=== PATIENT | female | born 1980 | race Caucasian/White ===

== ENCOUNTER 2018-09-15 21:35 | Emergency (ER) | payer OTHER ==
[~2018-09-15] VITALS: Ht 152.4 cm; Wt 76.2 kg
[2018-09-15] MEDS ORDERED: NASONEX17 GM NASAL (21:53)
[2018-09-15] MEDS ORDERED: PROMETHAZINE-C473 ML PO (21:53)
[2018-09-15 22:01] VITALS: BP 132/76
== END 2018-09-15 22:02 | disposition home or self-care (01) ==
LOC: M.ERS 21:35
DX: J06.9 Acute upper respiratory infection, unspecified (principal); H92.02 Otalgia, left ear; Z90.49 Acquired absence of other specified parts of digestive tract

== ENCOUNTER 2019-07-09 20:04 | Emergency (ER) | payer OTHER ==
[~2019-07-09] VITALS: Ht 157.5 cm; Wt 77.1 kg
[~2019-07-09 20:04] MED LIST: AFRIN15 ML NS; ANTIVERT25 MG PO; AUGMENTIN 875-1 EACH PO; MEDROLDOSEPACK PO; NASONEX17 GM NASAL; PROMETHAZINE-C473 ML PO
[2019-07-09] MEDS ORDERED: CLARITIN10 MG PO (20:17)
[2019-07-09] MEDS ORDERED: ROBAXIN 750 MG750 MG PO (21:05)
[2019-07-09] MEDS ORDERED: TRAMADOL 50 MG50 MG PO (21:05)
[2019-07-09] MEDS ORDERED: MOBIC7.5 MG PO (21:05)
[2019-07-09 21:18] VITALS: BP 130/79
== END 2019-07-09 21:18 | disposition home or self-care (01) ==
LOC: M.ERS 20:04
DX: M25.511 Pain in right shoulder (principal); M25.512 Pain in left shoulder; M54.6 Pain in thoracic spine; Z90.49 Acquired absence of other specified parts of digestive tract

== ENCOUNTER 2019-10-19 15:50 | Emergency (ER) | payer OTHER ==
[~2019-10-19] VITALS: Ht 157.5 cm; Wt 77.1 kg
[~2019-10-19 15:50] MED LIST changes: +CLARITIN10 MG PO; +MOBIC7.5 MG PO; +ROBAXIN 750 MG750 MG PO; +TRAMADOL 50 MG50 MG PO
[2019-10-19 16:38] LABS: INFLUENZA A ANTIGEN Negative (Negative)
[2019-10-19] MEDS ORDERED: AUGMENTIN 875-1 EACH PO (16:55)
[2019-10-19] MEDS ORDERED: CIPRODEX OTIC7.5 ML OTIC (16:55)
[2019-10-19] MEDS ORDERED: TYLENOL WITH CO1 TA1 PO (16:55)
[2019-10-19] MEDS ORDERED: NASONEX17 GM NASAL (17:13)
[2019-10-19] MEDS ORDERED: PREDNISONE 10 M10 MG PO (17:13)
[2019-10-19] MEDS ORDERED: PROMETH-CODEIN 65 ML PO (17:13)
[2019-10-19] MEDS ORDERED: TAMIFLU75 MG PO (17:13)
[2019-10-19 17:23] VITALS: BP 132/78
== END 2019-10-19 17:25 | disposition home or self-care (01) ==
LOC: M.ERS 15:50
PROVIDERS: Nurse Practitioner Family
DX: J10.1 Influenza due to other identified influenza virus with other respiratory manifestations (principal); Z90.49 Acquired absence of other specified parts of digestive tract

== ENCOUNTER 2019-10-23 18:59 | Emergency (ER) | payer OTHER ==
[~2019-10-23] VITALS: Ht 157.5 cm; Wt 77.1 kg
[~2019-10-23 18:59] MED LIST changes: +CIPRODEX OTIC7.5 ML OTIC; +PREDNISONE 10 M10 MG PO; +PROMETH-CODEIN 65 ML PO; +TAMIFLU75 MG PO; +TYLENOL WITH CO1 TA1 PO
[2019-10-23 20:07] LABS: HEMATOCRIT 42.6 % (37.0-47.0); HEMOGLOBIN 14.7 gm/dL (12.0-15.0); MCH 28.6 pg (26.0-34.0); MCHC 34.4 g/dL (28.0-37.0); NUCLEATED RBCS 0 /100WBC; PLATELET COUNT* 322 thou/uL (150-400); RBC 5.13 mil/uL (4.20-5.00)
[2019-10-23 20:18] LABS: CALCIUM 8.2 mg/dL (8.5-10.1); CREATININE 0.7 mg/dL (0.6-1.3); POTASSIUM 3.7 mmol/L (3.5-5.1)
[2019-10-23 20:28] LABS: ALBUMIN 3.7 g/dL (3.4-5.0); MAGNESIUM 2.2 mg/dL (1.8-2.4); TOTAL BILIRUBIN 0.2 mg/dL (<0.1-1.0)
[2019-10-23 20:36] LABS: ABSOLUTE LYMPHOCYTES 1.7 thou/uL (0.8-5.3); ABSOLUTE MONOCYTES 0.1 thou/uL (0.0-1.2); ABSOLUTE NEUTROPHILS 11.2 thou/uL (1.6-8.1)
[2019-10-23 20:37] LABS: PLATELET ESTIMATE ADEQUATE
[2019-10-23] MEDS ORDERED: NORCO 5-325 TA1 EAC1 PO (21:51)
[2019-10-23 22:16] VITALS: BP 138/83
--- NOTE | 2019-10-24 11:19 | EKG ---
[place] [address] ELECTROCARDIOGRAM REPORT Name: NORBERTO MARTINI [id number] Admission: 10/23/19 Attend Phys: Discharge: 10/23/19 Date of : 82 Report #: [id number] THIS REPORT FOR: //name// [facility] ED Test Date: 2019-10-23 Test Time: 19:27:59 Pat Name: NORBERTO MARTINI Department: Room: Gender: F Guardian Ad Litem: [place] : 1980 Requested By: Mj Stokes Order Number: [id number] MD: Juarez Locke Measurements Intervals [place] Rate: 69 P: 33 ID: 140 QRS: -8 QRSD: 98 T: 3 QT: 397 QTc: 426 Interpretive Statements Sinus rhythm Left ventricular hypertrophy Borderline ST elevation, lateral leads No previous ECG available for comparison Electronically Signed On 10-24-2019 11:18:33 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
== END 2019-10-23 22:17 | disposition home or self-care (01) ==
LOC: M.ERS 18:59
PROVIDERS: Emergency Medicine Emergency Medical Services
DX: R09.1 Pleurisy (principal); M94.0 Chondrocostal junction syndrome [Tietze]; J02.9 Acute pharyngitis, unspecified; R00.2 Palpitations; R11.0 Nausea; Z90.89 Acquired absence of other organs

== ENCOUNTER 2019-11-24 23:39 | Emergency (ER) | payer OTHER ==
[~2019-11-24] VITALS: Ht 157.5 cm; Wt 77.1 kg
[~2019-11-24 23:39] MED LIST changes: +NORCO 5-325 TA1 EAC1 PO
[2019-11-24] MEDS ORDERED: ZYRTEC10 M5 PO (23:58)
[2019-11-25] MEDS ORDERED: PREDNISONE50 MG PO (00:27)
[2019-11-25] MEDS ORDERED: FLONASE 0.05%50 MCG NARES (00:27)
[2019-11-25 00:50] VITALS: BP 115/71
== END 2019-11-25 00:51 | disposition home or self-care (01) ==
LOC: M.ERS 23:39
DX: H92.01 Otalgia, right ear (principal); Z90.49 Acquired absence of other specified parts of digestive tract

== ENCOUNTER 2020-07-22 16:25 | Emergency (ER) | payer OTHER ==
[~2020-07-22] VITALS: Ht 152.4 cm; Wt 70.3 kg
[~2020-07-22 16:25] MED LIST changes: +FLONASE 0.05%50 MCG NARES; +PREDNISONE50 MG PO; +ZYRTEC10 M5 PO
[2020-07-22] MEDS ORDERED: SUDAFED 12 HR120 MG PO (16:32)
[2020-07-22] MEDS ORDERED: MECLIZINE HCL25 M1 PO (16:56)
[2020-07-22] MEDS ORDERED: AUGMENTIN 875-1 EACH PO (16:56)
[2020-07-22] MEDS ORDERED: NORCO 5-325 TA1 EAC2 PO (16:56)
== END 2020-07-22 17:11 | disposition home or self-care (01) ==
LOC: M.ERS 16:25
DX: H83.02 Labyrinthitis, left ear (principal); Z90.49 Acquired absence of other specified parts of digestive tract

== ENCOUNTER 2020-11-02 21:52 | Emergency (ER) | payer OTHER ==
[~2020-11-02] VITALS: Ht 152.4 cm; Wt 70.3 kg
[~2020-11-02 21:52] MED LIST changes: +MECLIZINE HCL25 M1 PO; +NORCO 5-325 TA1 EAC2 PO; +SUDAFED 12 HR120 MG PO
[2020-11-02] MEDS ORDERED: FLEXERIL PO (22:49)
[2020-11-02] MEDS ORDERED: MOBIC7.5 MG PO (22:49)
[2020-11-02 22:57] VITALS: BP 132/85
== END 2020-11-02 22:58 | disposition home or self-care (01) ==
LOC: M.ERS 21:52
DX: M54.6 Pain in thoracic spine (principal); Z79.899 Other long term (current) drug therapy

== ENCOUNTER 2021-01-23 19:23 | Emergency (ER) | payer OTHER ==
[~2021-01-23] VITALS: Ht 157.5 cm; Wt 70.8 kg
[~2021-01-23 19:23] MED LIST changes: +FLEXERIL PO
[2021-01-23] MEDS ORDERED: FLEXERIL PO (21:39)
[2021-01-23] MEDS ORDERED: IBUPROFEN 800800 M1 PO (21:39)
[2021-01-23] MEDS ORDERED: BUTALB-APAP-CA1 EACH PO (21:39)
[2021-01-23 21:50] VITALS: BP 141/84
== END 2021-01-23 21:51 | disposition home or self-care (01) ==
LOC: M.ERS 19:23
DX: S09.8XXA Other specified injuries of head, initial encounter (principal); Z90.49 Acquired absence of other specified parts of digestive tract; W22.8XXA Striking against or struck by other objects, initial encounter; Y93.89 Activity, other specified; Y92.89 Other specified places as the place of occurrence of the external cause; Y99.8 Other external cause status

== ENCOUNTER → 2021-03-21 | Outpatient (CLI) | payer OTHER ==
[~2021-03-21] MED LIST changes: +BUTALB-APAP-CA1 EACH PO; +IBUPROFEN 800800 M1 PO
== END ==
LOC: M.RAD 03-17 08:36 → M.ULTRA 10:00 → M.RAD 03-22 10:40
PROVIDERS: ATTEND Obstetrics & Gynecology
DX: N60.02 Solitary cyst of left breast (principal); N63.21 Unspecified lump in the left breast, upper outer quadrant

== ENCOUNTER → 2021-03-31 | Outpatient (CLI) | payer OTHER ==
[~2021-03-31] MED LIST changes: +ACETAMINOPHEN-1 EAC2 PO; +AUGMENTIN 500-1 EACH PO; +DICLOXACILLIN250 M2 PO
--- NOTE | 2021-04-04 11:09 | PATH ---
[address] [address] PATHOLOGY RPT PROCEDURE Name: RICHA MARTINI Room: [facility] Zamora#: [id number] Admission: 03/31/21 Date of : 82 Discharge: Report #: [id number] Path Case #: [id number] [facility] Accession Number: [id number] . 01 Material submitted: . breast - BREAST MASS-LEFT-2:00 1CFN. Modifiers: left . 01 Clinical history: . LEFT BREAST MASS 2.18 X 2.07 X 1.69 . 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 See comment. (SHANE:osbaldo; 04/03/2021) S 04/03/2021 1033 Local . 02 Comment: Properly controlled Kiny[place] and PAS fungus stains are negative for mycobacterial and fungal organisms. No birefringent foreign material is seen when sections are reviewed under cross polarized microscopy. Reviewed with Dr. Jericho Roach on 04/03/2021, who agrees with the diagnosis. (SHANE:osbaldo; 04/03/2021) . 02 Electronically signed: . Jordan Altamirano MD, Pathologist NPI- [id number] . 01 Gross description: . The specimen is received in formalin, labeled "Richa Martini, left breast biopsy" additionally labeled left breast mass 2:00 1 cm from nipple on the requisition received as multiple soft hauser-yellow tissue cores measuring up to 1.2 cm x 0.2 cm. The specimen is entirely submitted A1-A2. The specimen is removed from the patient at 0920 hours and placed in formalin at 0922 hours on Saturday, March 31, 2021. The specimen is removed from formalin at 11:30pm. The specimen is in formalin for greater than 6 hours and less than 72 hours. ([facility]; 03/31/2021) ASAD/ASAD 03/31/2021 1740 Local . 02 Pathologist provided ICD-10: N61.0 . 02 CPT . 839868, 691126, 680681 [place] [address] PATHOLOGY RPT PROCEDURE Name: RICHA MARTINI Room: [facility]#: [id number] Admission: 03/31/21 Date of : 82 Discharge: Report #: [id number] Path Case #: [id number] Specimen Comment: A courtesy copy of this report has been sent to [phone] Specimen Comment: [phone], Specimen Comment: Report sent to ,DR BETANCOURT / DR SHELLEY Performed at: [address], [place], [place] [id number] MD Rishabh Melton MD Phone: [phone] Performed at: [facility] [address], [place], [place] [id number] MD Jordan Altamirano MD Phone: [phone]
== END ==
LOC: M.ULTRA 08:20
PROVIDERS: ATTEND Obstetrics & Gynecology
DX: N61.0 Mastitis without abscess (principal); R92.1 Mammographic calcification found on diagnostic imaging of breast; Z98.890 Other specified postprocedural states; Z79.899 Other long term (current) drug therapy

== ENCOUNTER 2021-04-11 23:15 | Emergency (ER) | payer OTHER ==
[~2021-04-11] VITALS: Ht 154.9 cm; Wt 70.3 kg
[~2021-04-11 23:15] MED LIST changes: -ACETAMINOPHEN-1 EAC2 PO; -AUGMENTIN 500-1 EACH PO; -DICLOXACILLIN250 M2 PO
[2021-04-11] MEDS ORDERED: DICLOXACILLIN250 M2 PO (23:34)
[2021-04-12] MEDS ORDERED: ACETAMINOPHEN-1 EAC2 PO (00:27)
[2021-04-12] MEDS ORDERED: AUGMENTIN 500-1 EACH PO (00:27)
[2021-04-12 00:38] VITALS: BP 147/76
== END 2021-04-12 00:38 | disposition home or self-care (01) ==
LOC: M.ERS 23:15
DX: L53.9 Erythematous condition, unspecified (principal); N61.0 Mastitis without abscess

== ENCOUNTER → 2021-04-14 | Outpatient (CLI) | payer OTHER ==
[~2021-04-14] MED LIST changes: +ACETAMINOPHEN-1 EAC2 PO; +AUGMENTIN 500-1 EACH PO; +DICLOXACILLIN250 M2 PO
== END ==
LOC: M.ULTRA 07:32
PROVIDERS: ATTEND Obstetrics & Gynecology
DX: N61.1 Abscess of the breast and nipple (principal)

== ENCOUNTER 2021-04-17 21:42 | Emergency (ER) | payer OTHER ==
[~2021-04-17] VITALS: Ht 154.9 cm; Wt 70.8 kg
[2021-04-17 21:46] VITALS: BP 145/65
[2021-04-17] MEDS ORDERED: ACETAMINOPHEN-1 EAC2 PO (22:39)
== END 2021-04-17 22:51 | disposition home or self-care (01) ==
LOC: M.ERS 21:42
DX: N64.4 Mastodynia (principal); Z76.0 Encounter for issue of repeat prescription; Z90.49 Acquired absence of other specified parts of digestive tract

== ENCOUNTER → 2021-05-26 | Outpatient (CLI) | payer OTHER ==
[2021-05-26 16:51] LABS: URINE BILIRUBIN NEGATIVE (Negative); URINE BLOOD 1+ (Negative); URINE COLOR YELLOW; URINE GLUCOSE-RANDOM NEGATIVE (Negative); URINE KETONES NEGATIVE (Negative); URINE LEUKOCYTES-REFLEX NEGATIVE (Negative); URINE NITRITE-REFLEX NEGATIVE (Negative); URINE PROTEIN NEGATIVE (Negative); URINE SPECIFIC GRAVITY <= 1.005 (1.005-1.030); URINE UROBILINOGEN 0.2 E.U./dl (0.2-1.0)
[2021-05-26 16:54] LABS: URINE CLARITY HAZY
[2021-05-26 17:08] LABS: BACTERIA-REFLEX None Seen /HPF (None Seen); CASTS None Seen /LPF (None Seen); SQUAMOUS 0-3 Few /LPF (0-3); URINE RBC 0-2 Rare /HPF (0-2); URINE WBC-REFLEX None Seen /HPF (0-5)
[2021-05-26 17:09] LABS: CRYSTALS None Seen /LPF (None Seen)
== END ==
LOC: M.LAB 16:35
PROVIDERS: ATTEND Internal Medicine
DX: N30.00 Acute cystitis without hematuria (principal)

== ENCOUNTER 2021-08-20 21:50 | Emergency (ER) | payer OTHER ==
[~2021-08-20] VITALS: Ht 157.5 cm; Wt 70.8 kg
[2021-08-20] MEDS ORDERED: NASONEX17 GM NASAL (23:09)
[2021-08-20 23:24] VITALS: BP 140/82
== END 2021-08-20 23:24 | disposition home or self-care (01) ==
LOC: M.ERS 21:50
DX: J06.9 Acute upper respiratory infection, unspecified (principal); Z20.822 Contact with and (suspected) exposure to COVID-19; Z90.49 Acquired absence of other specified parts of digestive tract

== ENCOUNTER 2021-08-21 22:34 | Emergency (ER) | payer OTHER ==
[~2021-08-21] VITALS: Ht 157.5 cm; Wt 70.8 kg
[2021-08-21 23:22] LABS: HEMATOCRIT 37.3 % (37.0-47.0); HEMOGLOBIN 12.6 gm/dL (12.0-15.0); MCH 28.8 pg (26.0-34.0); MCHC 33.8 g/dL (28.0-37.0); MCV 85.3 fL (80.0-100.0); MPV 7.8 fl. (7.2-11.1); RBC 4.37 mil/uL (4.20-5.00); RDW-CV 13.7 % (10.5-14.5); WBC 11.8 thou/uL (4.0-11.0)
[2021-08-21 23:31] LABS: CALCIUM 8.6 mg/dL (8.5-10.1); CREATININE 0.7 mg/dL (0.6-1.3); POTASSIUM 3.4 mmol/L (3.5-5.1)
[2021-08-21 23:35] LABS: ALBUMIN 3.2 g/dL (3.4-5.0); TOTAL BILIRUBIN 0.2 mg/dL (<0.1-1.0); TOTAL PROTEIN 7.3 g/dL (6.4-8.2)
[2021-08-22] MEDS ORDERED: CARAFATE1 GM PO (01:06)
[2021-08-22 01:13] VITALS: BP 120/72
--- NOTE | 2021-08-22 09:08 | EKG ---
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1980 Requested By: Anai Smiley Order Number: [id number] MD: Vince Henley Measurements Intervals [place] Rate: 71 P: 31 [place]: 149 QRS: -10 QRSD: 103 T: 14 QT: 411 QTc: 447 Interpretive Statements Sinus rhythm RSR' in V1 or V2, right VCD or RVH Compared to ECG 10/23/2019 19:27:59 Right ventricular hypertrophy now present RSR' in V1 or V2 now present Left ventricular hypertrophy no longer present ST (T wave) deviation no longer present Electronically Signed On 08-22-2021 9:08:20 CDT by Vince Henley [email or web address] <ELECTRONICALLY SIGNED> By: Vince Henley MD, FACC 08/22/21907 38 38 Vince Henley MD, [facility] /EPI
== END 2021-08-22 01:14 | disposition home or self-care (01) ==
LOC: M.ERS 22:34
PROVIDERS: Personal Emergency Response Attendant
DX: R07.89 Other chest pain (principal); K21.9 Gastro-esophageal reflux disease without esophagitis; I10 Essential (primary) hypertension; Z90.49 Acquired absence of other specified parts of digestive tract; Z79.899 Other long term (current) drug therapy

== ENCOUNTER → 2021-10-02 | Outpatient (CLI) | payer OTHER ==
[~2021-10-02] MED LIST changes: +CARAFATE1 GM PO
== END ==
LOC: M.RAD 09:40
PROVIDERS: ATTEND Surgery
DX: R92.8 Other abnormal and inconclusive findings on diagnostic imaging of breast (principal)